=== PATIENT | female | born 1940 | race Caucasian/White ===

== ENCOUNTER → 2017-10-31 | Day surgery (SDC) | payer OTHER ==
[~2017-10-31] VITALS: Ht 152.4 cm; Wt 71.2 kg
[~2017-10-31] MED LIST: MELOXICAM7.5 M1 PO; OMEPRAZOLE40 M1 PO; PAXIL10 M1 PO; SERTRALINE HCL25 MG PO; TRAMADOL HCL50 M1 PO
--- NOTE | 2017-10-31 10:38 | Operative Report ---
Operative/Inv Procedure Report Surgery Date: 10/31/17 Name of Procedure: cystocele with mesh, urethral sling, rectocele repair with mesh, cystoscopy Pre-Operative Diagnosis: cystocele grade 3-4, rectocele grade 3-4, uterine prolapse grade 2, occult TALYA, UUI Post-Operative Diagnosis: same Estimated Blood Loss: scant (250cc) Surgeon/Md Physician Dermatologist: Deion BOSS,Ursula Elizabeth Anesthesia: general endotracheal tube Implants: vaginal mesh x 2 Drains: none Specimens: none Complications: none Condition: stable Operative Indication: cystocele grade 3-4, rectocele grade 3-4, uterine prolapse grade 2 incontinence with very bothersome vaginal symptoms Operative/Procedure Note Note: 77-year-old female with a history of pelvic organ prolapse and was very bothersome. She was managed with a Gellhorn pessary but found it very uncomfortable and wished to proceed with surgery and wished to proceed with surgery. She was given the risks benefits and alternatives of She was given the risks benefits and alternatives of possible vaginal hysterectomy with prolapse repair with mesh in the anterior and posterior hou and possible with prolapse repair with mesh in the anterior and posterior hou and possible urethral sling for occult stress incontinence. Literature was given and all questions were answered in the office as well as in the holding area with family is in the holding area with the family present. Patient was taken to the operating room and placed on the operating table in the supine position. Endotracheal tube was placed by anesthesia without difficulty. IV antibiotics were infused. She was placed in the dorsolithotomy position and prepped and draped in a standard sterile fashion after shaving the genitalia. She was placed in the dorsolithotomy position and prepped and draped in the standard sterile fashion after shaving the genitalia. Cystoscopy was performed at the start of the case to placeat the start of the case to place temporary bilateral ureteral stents temporary bilateral ureteral stents however the bladder was very the bladder was very erythematous and consistent with an active urinary tract infection. Due to the prolapse and the active infection it was very difficult to locate the ureteral orifices. The right ureteral orifice was finally located andThe right ureteral orifice was finally located and cannulated with a cannulated with a temporary ureteral stent however there was J hooking even with a sponge stick in the vaginal vault. Given the degree of uterine prolapse grade 2 and the active urinary tract infection it was deemed more appropriate to leave intact and performed a prolapse repair the uterus and cervix intact and performed the prolapse repair without a vaginal hysterectomy. The ureteral stent placement attempt was aborted. A Watkins retractor was placed with 6 day hooks. Morris catheter was placed and 10 cc was placed into the balloon port. One Percent lidocaine with epinephrine was infiltrated into the anterior vaginal wall from the bladder neck to the cervical stump. An incision was made in the same distance and the vaginal flaps were created taking care not to injure the bladder or the enterocele. Once the entire cystocele enterocele were dissected free the Coloplast Restoril mesh was then placed with 4 Prolene sutures with the thin Capio device. One in the sacrospinous ligament on the right side followed by the left side and one each in the arcus tendineus at the level of the bladder neck on the right and left side. They were each in excellent placement and the mesh was secured and tied down after 2-0 Vicryl sutures were placed at the bladder neck and at the proximal portion near the cervix. This nicely reduce the cystocele and the enterocele. There was copiously irrigated with bacitracin irrigation. Surgicel was placed into the left deep pelvis near the 6 spinous ligament. A cystoscopy was performed. Methylene blue had been given at the start of the case to check for patency of the ureteral orifices at a later time. The ureteral orifices were easier to identify and efflux was seen from both ureters and both ureters accommodated the temporal ureteral stents without issue. The anterior vaginal wall was then closed with 2-0 Vicryl running suture locking every third suture. Attention was then turned to the sling portion of the case. 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 Percent lidocaine with epinephrine was infiltrated into the anterior vaginal wall beneath the urethra. Incision was made 2 inches beneath the urethra. Vaginal flaps are created taking care not to injure the urethra. The UltraSling kit was then opened and the trochars provided was used to place the urethral sling in a flat orientation. The sling was seen to be in good position and the tightening Prolene suture was cut after it was tightened. The area was copious irrigated with bacitracin irrigation. The anterior vaginal wall was then closed with a running locking 3-0 Vicryl suture. Attention was then turned to the rectocele portion of the case. Watkins retractor was replaced to allow for excellent visualization of the vaginal vault. Allis clamps are placed at the posterior fourchette. 1% lidocaine with epinephrine was infiltrated into the posterior vaginal wall. Incision was made at the posterior fourchette in a lateral fashion. Metzenbaum scissors was then used to carefully dissect the rectocele from the posterior vaginal wall. The incision was carried all the way up to the cervical stump. The posterior wall was then dissected free from the rectocele taking care not to injure the rectum. A cell mesh had been soaking for 20 minutes prior to this and this was then used for this repair. 2-0 Vicryl interrupted sutures were placed along the entire length of the rectocele within strong fascial tissue on the right and left side. These were tied down until a cell mesh was placed between the sutures and secured proximally and distally. The sutures were then sequentially tied down from proximal to distal orientation. This nicely reduced the rectocele. Area was grossly irrigated bacitracin irrigation and then the posterior wall was closed with interrupted 2-0 Vicryl sutures. 2 inch vaginal packing impregnated with bacitracin ointment was placed in the vaginal vault. Sponge and needle count were correct at the end of the case. Patient tolerated the procedure well. Findings: No mesh in the bladder, urethra, or vaginal fornices. Excellent ureteral efflux from both ureters. Discharge Disposition: PACU
== END ==
LOC: STS 01:57
DX: N39.3 Stress incontinence (female) (male) (principal); N32.81 Overactive bladder; N39.0 Urinary tract infection, site not specified; N39.41 Urge incontinence; N81.2 Incomplete uterovaginal prolapse; N81.3 Complete uterovaginal prolapse; R35.0 Frequency of micturition; I10 Essential (primary) hypertension; R39.198 Other difficulties with micturition; Z87.891 Personal history of nicotine dependence
CPT/HCPCS: 87086; C1771; C1781; J0131; J0690; J0744; J2250; J3490; Q9968